=== PATIENT | male | born 1985 | race Two or more races ===

== ENCOUNTER 2024-07-14 06:16 | Emergency (ER) | payer MEDICAID, SELFPAY ==
[2024-07-14 06:17] VITALS: BMI 39.4
[2024-07-14 06:29] VITALS: BP 146/84; PULSE 64; RESP 19; TEMP 36.4; O2SAT 98
--- NOTE | 2024-07-14 06:40 | EDNOTE_ITS ---
ED Skin Abcess FB-RME/HPI General Chief complaint: Skin/Abscess/Foreign Body Stated complaint: ABSCESS ELBOW LEFT Time Seen by Provider: 07/14/24 06:20 Source: patient Arrival date/time: 07/14/24 06:16 Mode of arrival: ambulatory Limitations: no limitations RME / HPI RME / HPI narrative: 39 yo M with no reported past medical history presents for evaluation of left elbow pain x 1 week. Patient endorses draining, painful lesion to his left elbow that presented spontaneously. He has been taking ibuprofen at home and using topical hydrogen peroxide with minimal improvement in symptoms. Denies fever, chills, rash, trauma, prior similar lesions at this area. MD complaint: abscess/boil Onset (ago): week(s) Tetanus up to date: yes Severity: mild Relieving factors: immobilization Associated symptoms: denies other symptoms Treatments prior to arrival: NSAID and other (H3O) Related Data Previous Rx's ?Medication ?Instructions ?Recorded acetaminophen 500 mg capsule 1,000 mg (2 x 500 mg) PO Q6H PRN 10/31/19 fever or pain #30 caps ibuprofen 800 mg tablet 800 mg PO TID PRN pain #30 tabs 10/31/19 albuterol sulfate 90 mcg/actuation 2 inh inhalation QID #1 ea 12/28/19 breath activated powder inhaler cetirizine 10 mg tablet (Zyrtec) 10 mg PO QDAY #30 tabs 12/28/19 tramadol 50 mg tablet 50 mg PO TID PRN pain #15 tabs 11/10/20 ibuprofen 600 mg tablet 600 mg PO Q8H PRN pain #30 tabs 02/12/21 [id number]-wthqjlbsrdmiv-xggcjzjy 250 1 tab PO Q6H PRN pain #20 tabs 11/22/22 mg-250 mg-65 mg tablet (Migraine Formula) sodium chloride 0.65 % nasal spray 2 spray intranasal QID #88 mL 11/22/22 aerosol (Saline Nasal) sulfamethoxazole 800 1 tab PO BID skin infection 5 days 07/14/24 mg-trimethoprim 160 mg tablet #10 tabs (Bactrim DS) Allergies Allergy/AdvReac Type Severity Reaction Status Date / Time amoxicillin Allergy Intermediate Rash Verified 02/21/23 19:17 clindamycin Allergy Intermediate Rash Verified 02/21/23 19:17 Penicillins Allergy Intermediate RASH Verified 02/21/23 19:17 Review of Systems Constitutional Constitutional: Denies chills, Denies fever(s) and Denies headache(s) ENT Ears, Nose, Mouth, and Throat: Denies headache(s), Denies neck pain and Denies vertigo Cardiovascular Cardiovascular: Denies chest pain, Denies diaphoresis and Denies dyspnea Respiratory Respiratory: Denies cough and Denies dyspnea Gastrointestinal Gastrointestinal: Denies abdominal pain, Denies nausea and Denies vomiting Musculoskeletal Musculoskeletal: Denies back pain, Denies joint swelling, Denies neck pain and Denies numbness Integumentary/Breasts Skin/Breast: Reports furuncle (left elbow ), Denies rash and Reports wounds (purulent, red lesion left elbow ) Neurologic Neurologic: Denies headache(s), Denies numbness and Denies vertigo Past Medical History Past Medical History CARDIAC: Negative Congestive Heart Failure RESPIRATORY: Negative Chronic Obstructive Pulmonary Disease (COPD) GENITOURINARY: Negative Renal Disease ENDOCRINE: Negative Diabetes Mellitus Type 1 or Diabetes Mellitus Type 2 Social History SMOKING STATUS: Never smoker ED Exam General Limitations: Present no limitations General appearance: Present alert and in no apparent distress Head Head exam: Present atraumatic and normocephalic Eye Eye exam: Present normal appearance and EOMI ENT ENT exam: Present normal exam, mucous membranes moist and normal external ear exam Neck Neck exam: Present normal inspection and full ROM Chest Chest inspection: Present normal inspection and symmetric chest wall rise Respiratory Respiratory exam: Absent respiratory distress or wheezes Cardiovascular Cardiovascular exam: Present regular rate and +S1 Abdominal Exam Abdominal exam: Present soft; Absent distention Expanded Upper Extremity Exam Shoulder exam: Present normal inspection Arm exam: Present normal inspection Elbow exam: Present full ROM, swelling (mild swelling at olecrannon process. ), erythema and other (slightly indurated, open circular abscess to L elbow with purulent eschar. No overlying warmth. No fluctuance. ); Absent tenderness, crepitus or effusion Forearm/Wrist exam: Present normal inspection Hand exam: Present normal inspection Vascular exam: Normal capillary refill and radial pulse Back Exam Back exam: Present normal inspection and full ROM Neurological Exam Neurological exam: Present alert and normal gait Psychiatric Psychiatric exam: Present normal affect Skin Skin exam: Present warm and dry Course Quality Measures none Orders Category Date Time Status DiphenhydrAMINE [Benadryl] Med 07/14/24 06:42 Discontinued 25 mg PO X1 ONE cefTRIAXone [Rocephin] 500 mg Med 07/14/24 06:42 Discontinued Lidocaine 1% 20 ml [Xylocaine 1% 20 ML] 1 ml IM X1 Vital Signs Vital signs: Vital Signs Temperature 97.6 F 07/14/24 06:29 Pulse Rate 64 07/14/24 06:29 Respiratory Rate 19 07/14/24 06:29 Blood Pressure 146/84 H 07/14/24 06:29 Pulse Oximetry (%) 98 07/14/24 06:29 Oxygen Delivery Method Room Air 07/14/24 06:29 Pulse ox 90% on room air, within normal limits. Skin / Abscess / Foreign Body MDM Narrative MDM Narrative:: 39-year-old male presented with lesion to his left elbow. Vital signs reassuring. Physical exam significant for mild erythema and indurated lesion at left elbow with purulent material without active discharge. No tenderness on exam. DDx: * Infected Bursitis (olecranon bursitis): * A common cause of swelling and tenderness over the elbow, particularly the olecranon bursa. * Could present with a painful, draining lesion if the bursa becomes infected (i.e., septic bursitis). * Common in individuals with repetitive trauma or pressure over the elbow. * History of no trauma does not rule this out, as it could be spontaneous or related to minor, unnoticed trauma. * Abscess (Soft Tissue Infection): * If the lesion is fluctuant, with drainage, it could represent a skin abscess. * These can develop due to bacterial infections, often by Staphylococcus aureus (including MRSA), particularly in areas of friction or minor trauma. * Redness, warmth, and localized pain should be assessed for signs of infection. * Infected Cyst (e.g., epidermoid cyst): * A cyst may become infected, causing localized pain, swelling, and drainage. * Cysts can become tender and may drain pus if infected. * The history does not describe a prior similar lesion, but this could still be a possibility. * Cellulitis: * Could present as redness and swelling, though the lesion described sounds more like a localized abscess or cyst. * Cellulitis typically presents with fever, chills, and more diffuse skin involvement, which this patient denies. * Gout or Pseudogout (unlikely but worth consideration): * While less likely in this context, a crystal-induced arthritis can cause pain and swelling, typically with a more acute, inflammatory nature. * The absence of other signs of inflammatory arthritis makes this less likely but could be considered if the lesion is located near a joint. * Contact Dermatitis: * If there's any history of environmental exposures (e.g., a new irritant, chemical), a contact reaction could present as a painful, red lesion. * However, this would not typically cause a draining lesion, unless there's secondary infection. Patient was given a shot of Rocephin in the department and discharged with x 5- day course of Bactrim for MRSA coverage. Patient agreeable with plan to start antibiotics and follow-up with primary care within the next week for reevaluation. Patient stable at time of discharge Patient data External records reviewed:: [facility] previous records Clinical information provided by:: patient Social determinants that could affect healthcare access:: none Patient has the following chronic illnesses:: None reported. How is presenting disease/condition affected by chronic disease/condition?: no chronic disease Evaluation data The following diagnostics were reviewed and interpreted by me:: other (specify) Lab and/or radiology exams considered but not ordered:: Considered not ordered. Interpretation Summary: Considered not ordered. Medications / Prescriptions Medications or Prescriptions considered but not ordered:: Rx given. Medication administrations:: Medication Administration History Discontinued Medications Ceftriaxone Sodium 500 mg/ (Lidocaine HCl 1 ml) 0 mg IM X1 ONE Stop: 07/14/24 06:43 Last Admin: 07/14/24 06:52 Dose: 500 mg Documented By: PARAM Diphenhydramine HCl (Diphenhydramine 25 Mg Capsule) 25 mg PO X1 ONE Stop: 07/14/24 06:43 Rx given. Consultations Consultation(s) initiated? (list below): No Diagnosis Skin/Abscess Differential Diagnosis: abscess of skin or subcutaneous tissue, cellulitis, insect bites and contact dermatitis Most likely diagnosis given after review of the tests above:: Abscess left elbow. Admission Indicated Admission indicated?: not indicated Admission Request Was there a request for admission?: No Disposition Plan Disposition Plan: Discharge Discharge Attestation Discharge Attestation: The patient and all family members were given an opportunity to ask questions and understood the discharge instructions. Discharge instructions specifically effects, indications for sooner follow up or return to the emergency department, and the expected course of current diagnosis. Patient condition: Stable Discharge Plan Plan Patient Disposition: HOME (Self Care) Disposition Comment: stable Prescriptions/Referrals Prescriptions/Med Rec: New sulfamethoxazole-trimethoprim [Bactrim DS] 800-160 mg tablet 1 tab PO BID 5 Days Qty: 10 0RF Rx Instructions: Take antibiotic twice daily for skin infection. No Action ibuprofen 800 mg tablet 800 mg PO TID PRN (Reason: pain) Qty: 30 0RF acetaminophen 500 mg capsule 1,000 mg PO Q6H PRN (Reason: fever or pain) Qty: 30 0RF albuterol sulfate 90 mcg/actuation aerosol powdr breath activated 2 inh IH QID Qty: 1 0RF cetirizine [Zyrtec] 10 mg tablet 10 mg PO QDAY Qty: 30 0RF ibuprofen 600 mg tablet 600 mg PO Q8H PRN (Reason: pain) Qty: 30 0RF tramadol 50 mg tablet 50 mg PO TID PRN (Reason: pain) Qty: 15 0RF Saline Nasal 0.65 % aerosol,spray 2 spray intranasal QID Qty: 88 0RF Migraine Formula 250-250-65 mg tablet 1 tab PO Q6H PRN (Reason: pain) Qty: 20 0RF Referrals: Temporary Provider,ED [Physician] - In 1 week Problem List Clinical Impression: Abscess of skin or subcutaneous tissue Patient/Caregiver Discharge Instructions Education Materials: Abscess Drainage, ED Cellulitis Print Language: Spanish Stand Alone Forms: Anne Marie Award Info., Patient Portal Info Letter PA/BUTTER GRADER Supervising Physician PA/BUTTER GRADER Supervising Physician: Dr. Verdin
[2024-07-14] MEDS: cefTRIAXone 500 MG, LIDOCAINE 1% 20 ML 1 ML IM (06:52)
[2024-07-14] MEDS: DiphenhydrAMINE 25 MG CAPSULE PO (07:40)
== END 2024-07-14 07:42 | disposition home or self-care (01) ==
PROVIDERS: Emergency Provider Emergency Medicine; PCP Registered Nurse Community Health
DX: L02.414 Cutaneous abscess of left upper limb (principal)
CPT/HCPCS: 96372; 99283; J0696; J3490; A9270

== ENCOUNTER 2024-12-23 19:43 | Emergency (ER) | payer MEDICAID, SELFPAY ==
[2024-12-23 19:43] VITALS: BP 121/76; PULSE 88; RESP 20; TEMP 36.7; O2SAT 95; BMI 38.9
--- NOTE | 2024-12-23 20:22 | EDNOTE_ITS ---
ED Wound/Laceration-RME/HPI General Chief Complaint: Wound/Laceration Stated Complaint: STEPPED ON A NAIL Time Seen by Provider: 12/23/24 20:03 Arrival date/time: 12/23/24 19:43 39 year old male present to emergency room with c/o of stepped on nail today. unsure of tetanus status. LOCATION: foot SEVERITY: Symptoms are described as being severe with limitations on activities of daily living QUALITY: Symptoms are described as being dull or achy CONTEXT: stepped on nail (fully intact) DURATION/TIMING: The symptoms started approximately immediately prior to arrival ago and have been constant this then. ASSOCIATED SYMPTOMS: The patient is unable to identify any other associated symptoms. MODIFYING FACTORS: The patient is unable to identify any alleviating or aggravating symptoms. PERTINENT ROS: no fevers, no headache, no neck or chest pain, no unexplained nausea or vomiting, no focal neurological deficits REVIEW OF SYSTEMS: See History of Present Illness - with the exception of those mentioned in the history of present illness, all other systems reviewed and reported as negative GENERAL: In general the patient is awake, interactive, in an emergency department gurney. HEAD/EYES/EARS/NOSE/THROAT: normo-cephalic, atraumatic, mucus membranes are moist, anicteric, palpebral conjunctiva is pink, trachea is midline. NEUROLOGICAL: cranio-facial features are symmetric, moves all four extremities equally without obvious limitations or weakness. EXTREMITY: right foot sole single puncture wound no tenderness to palpation over the long bones or large joints of the bilateral upper and lower extremities, no joint swelling, no joint erythema, no unilateral leg swelling and no peripheral edema. SKIN: warm, dry, well-perfused, no jaundice, no rash, no telangiectasias or petechia. PSYCH: calm, cooperative, no evidence of psychosis or agitation Related Data Previous Rx's ?Medication ?Instructions ?Recorded acetaminophen 500 mg capsule 1,000 mg (2 x 500 mg) PO Q6H PRN 10/31/19 fever or pain #30 caps ibuprofen 800 mg tablet 800 mg PO TID PRN pain #30 t abs 10/31/19 albuterol sulfate 90 mcg/actuation 2 inh inhalation QI D #1 ea 12/28/19 breath activated powder inhaler cetirizine 10 mg tablet (Zyrtec) 10 mg PO QDAY #30 tab s 12/28/19 tramadol 50 mg tablet 50 mg PO TID PRN pain #15 ta bs 11/10/20 ibuprofen 600 mg tablet 600 mg PO Q8H PRN pain #30 t abs 02/12/21 [id number]-oqyzhcvqgvqjn-kugzklxf 250 1 tab PO Q6H PRN pa in #20 tabs 11/22/22 mg-250 mg-65 mg tablet (Migraine Formula) sodium chloride 0.65 % nasal spray 2 spray intranasal QID #88 mL 11/22/22 aerosol (Saline Nasal) cephalexin 500 mg capsule 500 mg PO Q6H 7 days #28 cap s 12/23/24 Allergies Allergy/AdvReac Type Severity Reaction Status Date / Time amoxicillin Allergy Intermediate Rash Verified 12/23/24 19:45 clindamycin Allergy Intermediate Rash Verified 12/23/24 19:45 Penicillins Allergy Intermediate RASH Verified 12/23/24 19:45 Course Course Course Narrative: Workup: xray decline by patient? Rx:? Advised patient to follow up promptly with primary care provider for wound check in 48 hours or to return to ED Disposition: Discharge. Strict return precautions discussed with patient with full understanding. Rx: keflex 500mg qid for 7 days with 48 hour wound follow up. taken in Ed without no complication? Quality Measures none Orders Category Date Time Status Tetanus, Diphtheria Toxoids/Pf [Tenivac-Adult] Med 12/23/24 20:22 Discontinued 0.5 ml IMI .ONCE ONE cephALEXin [Keflex] Med 12/23/24 20:22 Discontinued 500 mg PO X1 ONE Vital Signs Vital signs: Vital Signs Temperature 98.0 F 12/23/24 19:43 Pulse Rate 88 12/23/24 19:43 Respiratory Rate 20 12/23/24 19:43 Blood Pressure 121/76 12/23/24 19:43 Pulse Oximetry (%) 95 12/23/24 19:43 Oxygen Delivery Method Room Air 12/23/24 19:43 Wound / Laceration Patient data External records reviewed:: [facility] previous records Clinical information provided by:: patient Social determinants that could affect healthcare access:: none Patient has the following chronic illnesses:: n/a How is presenting disease/condition affected by chronic disease/condition?: no chronic disease Evaluation data The following diagnostics were reviewed and interpreted by me:: other (specify) (n/a ) Lab and/or radiology exams considered but not ordered:: n/a Interpretation Summary: n/a Medications / Prescriptions Medications or Prescriptions considered but not ordered:: n/a Medication administrations:: Medication Administration History Discontinued Medications Cephalexin HCl (Cephalexin 250 Mg Capsule) 500 mg PO X1 ONE Stop: 12/23/24 20:23 Last Admin: 12/23/24 21:13 Dose: 500 mg Documented By: Tetanus/Diphtheria Toxoids (Tetanus,Diphtheria Toxoids/Pf (Adult) 0.5 Ml Syri nge) 0.5 ml IMi .ONCE ONE Stop: 12/23/24 20:23 Last Admin: 12/23/24 21:14 Dose: 0.5 ml Documented By: n/a Consultations Consultation(s) initiated? (list below): No Diagnosis Wound Differential Diagnosis: abrasion, avulsion of skin and other (puncture foot ) Most likely diagnosis given after review of the tests above:: puncture foot Admission Indicated Admission indicated?: not indicated Admission Request Was there a request for admission?: No Disposition Plan Disposition Plan: Discharge Discharge Attestation Discharge Attestation: The patient and all family members were given an opportunity to ask questions and understood the discharge instructions. Discharge instructions specifically effects, indications for sooner follow up or return to the emergency department, and the expected course of current diagnosis. Patient condition: Stable Discharge Plan Plan Patient Disposition: HOME (Self Care) Prescriptions/Referrals Prescriptions/Med Rec: New cephalexin 500 mg capsule 500 mg PO Q6H 7 Days Qty: 28 0RF No Action ibuprofen 800 mg tablet 800 mg PO TID PRN (Reason: pain) Qty: 30 0RF acetaminophen 500 mg capsule 1,000 mg PO Q6H PRN (Reason: fever or pain) Qty: 30 0RF albuterol sulfate 90 mcg/actuation aerosol powdr breath activated 2 inh IH QID Qty: 1 0RF cetirizine [Zyrtec] 10 mg tablet 10 mg PO QDAY Qty: 30 0RF ibuprofen 600 mg tablet 600 mg PO Q8H PRN (Reason: pain) Qty: 30 0RF tramadol 50 mg tablet 50 mg PO TID PRN (Reason: pain) Qty: 15 0RF Saline Nasal 0.65 % aerosol,spray 2 spray intranasal QID Qty: 88 0RF Migraine Formula 250-250-65 mg tablet 1 tab PO Q6H PRN (Reason: pain) Qty: 20 0RF Problem List Clinical Impression: Puncture wound of foot Patient/Caregiver Discharge Instructions Education Materials: ED Puncture Wound (Foot) Print Language: [place] Stand Alone Forms: Anne Marie Award Info., Patient Portal Info Letter
[2024-12-23] MEDS: cephALEXin 250 MG CAPSULE 500 MG PO (21:13)
[2024-12-23] MEDS: TETANUS,DIPHTHERIA TOXOIDS/PF (ADULT) 0.5 ML SYRINGE IMi (21:14)
== END 2024-12-23 20:55 | disposition home or self-care (01) ==
LOC: SERX 21:25
PROVIDERS: Emergency Provider Emergency Medicine
DX: S91.331A Puncture wound without foreign body, right foot, initial encounter (principal); W45.0XXA Nail entering through skin, initial encounter; Z23 Encounter for immunization
CPT/HCPCS: 90471; 90714; 99282; A9270